=== PATIENT | female | born 1940 | race African-American/Black ===

== ENCOUNTER 2024-01-31 01:28 | Emergency (ER) | payer MEDICARE, MEDICAID ==
[~2024-01-31] VITALS: Ht 157.5 cm; Wt 65.5 kg
[2024-01-31 01:35] VITALS: BP 172/78; PULSE 92; RESP 16; TEMP 97.5; O2SAT 89
[2024-01-31] MEDS ORDERED: HYDR30CR39 TP (04:14)
[2024-01-31] MEDS ORDERED: DIPH-1243 PO (04:14)
[2024-01-31] MEDS: PredniSONE 20 MG TABLET PO ONE (04:31)
[2024-01-31] MEDS: DiphenhydrAMINE HCL 25 MG CAPSULE PO ONE (04:31)
== END 2024-01-31 04:48 | disposition home or self-care (01) ==
LOC: EMS 01:28
DX: L29.9 Pruritus, unspecified (principal); E11.9 Type 2 diabetes mellitus without complications; I11.9 Hypertensive heart disease without heart failure
CPT/HCPCS: 99283; J7512